=== PATIENT | female | born 1985 | race Caucasian/White ===

== ENCOUNTER 2017-01-07 22:13 | Emergency (ER) | payer OTHER, SELFPAY ==
[2017-01-07] MEDS ORDERED: Acetaminophen 500 MG TAB ONE (22:33)
[2017-01-07] MEDS ORDERED: Ketorolac Tromethamine 30 MG/ML VIAL ONE (22:33)
[2017-01-07 22:51] LABS: #Basophils 0.2 thou/uL (0.0-0.2); #Eosinphils 0.1 thou/uL (0.0-0.7); #Monocytes 0.8 thou/uL (0.11-0.59); #Neutrophils 4.6 thou/uL (1.40-6.50); %Basophils 2.8 % (0.0-1.0); %Eosinophils 1.4 % (0.0-10.0); %Monocytes 10.3 % (0.0-10.0); Hematocrit 42.1 % (36.0-47.0); Red Blood Cell (RBC) Count 5.23 mill/uL (4.20-5.40); White Blood Cell (WBC) Count 7.8 thou/uL (4.8-10.8)
[2017-01-07 22:57] LABS: Bilirubin Negative (Negative); Blood, Urine Trace (Negative); Glucose, Urine (Dipstick) Negative (Negative); Ketone, Urine Negative (Negative); Nitrite Negative (Negative); Protein, Urine (Dipstick) 100 mg/dL (Neg-Trace); Urobilinogen 0.2 mg/dL (0.2-1.0)
[2017-01-07 23:05] LABS: ALT (SGPT) 42 U/L (0-55); AST (SGOT) 44 U/L (5-34); Alkaline Phosphatase 93 U/L (40-150); Anion Gap 15 mmol/L (10-20); BUN (Urea Nitrogen) 7 mg/dL (7.0-18.7); Bilirubin, Total 0.3 mg/dL (0.2-1.2); Calc. Creatinine Clearance 0 mL/min (70-130); Calcium 9.1 mg/dL (7.8-10.44); Carbon Dioxide 21 mmol/L (22-29); Chloride 106 mmol/L (98-107); Estimated GFR-MDRD 80; Globulin 3.7 g/dL (2.4-3.5); Protein, Total 7.9 g/dL (6.0-8.3)
[2017-01-07 23:07] LABS: Bacteria/HPF Rare-Few HPF (None Seen); RBC/HPF 0-3 HPF (0-3); Squamous Epithelial 0-3 HPF (0-3); WBC/HPF None Seen HPF (0-3)
--- NOTE | 2017-01-07 23:11 | RAD ---
CHEST TWO VIEWS 01/07/17 Comparison is made with the 01/06/16 study. The heart is normal in size and the lungs are clear. No infiltrate or effusion was seen. The left hi lum is little more prominent than the right but this may be due to the patient being rotated slightl y. There is no sign of pneumonia. IMPRESSION: No acute thoracic findings. POS: HOME
[2017-01-07 23:33] LABS: Lactic Acid - Sepsis 1.4 mmol/L (0.5-2.2)
== END 2017-01-07 23:57 | disposition home or self-care (01) ==
LOC: BURERS 22:13
DX: J11.1 Influenza due to unidentified influenza virus with other respiratory manifestations (principal); I10 Essential (primary) hypertension; K58.9 Irritable bowel syndrome, unspecified; F31.9 Bipolar disorder, unspecified; F17.210 Nicotine dependence, cigarettes, uncomplicated; Z79.899 Other long term (current) drug therapy
CPT/HCPCS: 71020; 80053; 81003; 81015; 83605; 85025; 87081; 87430; 96361; 96374; J1885